=== PATIENT | male | born 1965 | race Caucasian/White ===

== ENCOUNTER 2016-09-23 11:05 | Day surgery (SDC) | payer OTHER ==
[2016-09-22 09:28] LABS: ASPARTATE AMINO TRANSFERASE 21 U/L (15-37); BLOOD UREA NITROGEN 14 mg/dL (7-18)
[~2016-09-23] VITALS: Ht 193 cm; Wt 130.4 kg
[~2016-09-23 11:05] MED LIST: ISOS30TA8 PO; LISI-170 PO; METO25TA91 PO; WARF5TAB7 PO
[2016-09-23] MEDS ORDERED: LIDOCAINE 2% 100MG/5ML SYRINGE ONE (11:08)
[2016-09-23] MEDS ORDERED: LIDOCAINE 2%, 20ML ONE (11:08)
[2016-09-23] MEDS ORDERED: FENTANYL PF 100 MCG/2ML ONE (11:08)
[2016-09-23] MEDS ORDERED: MIDAZOLAM 1 MG/ML, 5ML ONE (11:08)
[2016-09-23] MEDS ORDERED: SODIUM CHLORIDE 0.9% 1,000 ML IV SCH ×2 (11:11→13:30)
[2016-09-23 11:25] VITALS: BP 141/89
== END 2016-09-23 15:57 ==
LOC: CACL 11:05
PROVIDERS: ATTEND Internal Medicine Cardiovascular Disease
DX: I25.10 Atherosclerotic heart disease of native coronary artery without angina pectoris (principal); I34.0 Nonrheumatic mitral (valve) insufficiency; I48.2 Chronic atrial fibrillation; E78.5 Hyperlipidemia, unspecified; I10 Essential (primary) hypertension; G47.33 Obstructive sleep apnea (adult) (pediatric); Z79.01 Long term (current) use of anticoagulants
CPT/HCPCS: 36415; 71020; 80053; 85025; 85610; 85730; 93005; 93458; 99156; C1894; J2250; J3010; J3490; Q9967

== ENCOUNTER → 2018-01-01 | Outpatient (CLI) | payer OTHER ==
[~2018-01-01] MED LIST changes: +WARF-36 PO; -WARF5TAB7 PO
== END | disposition home or self-care (01) ==
LOC: CVU 12:47
PROVIDERS: ATTEND Internal Medicine Cardiovascular Disease
DX: I34.0 Nonrheumatic mitral (valve) insufficiency (principal); I35.8 Other nonrheumatic aortic valve disorders; I11.9 Hypertensive heart disease without heart failure; I48.91 Unspecified atrial fibrillation
CPT/HCPCS: 93306

== ENCOUNTER → 2018-02-19 | Outpatient (CLI) | payer OTHER | END | disposition home or self-care (01) | LOC: CFH 12:58 | PROVIDERS: ATTEND Orthopaedic Surgery | DX: I87.2 Venous insufficiency (chronic) (peripheral) (principal) ==

== ENCOUNTER → 2019-12-24 | Outpatient (CLI) | payer OTHER | END | disposition home or self-care (01) | LOC: CVU 12-23 15:37 | PROVIDERS: ATTEND Internal Medicine Cardiovascular Disease | DX: I08.8 Other rheumatic multiple valve diseases (principal); I48.20 Chronic atrial fibrillation, unspecified; I11.9 Hypertensive heart disease without heart failure | CPT/HCPCS: 93306 ==